=== PATIENT | male | born 1945 | race Caucasian/White ===

== ENCOUNTER → 2018-07-07 | Outpatient (CLI) | payer MEDICARE ==
[~2018-07-07] MED LIST: APIX5TAB PO; ASCO10004 PO; DIAZ5TAB PO; DIGO125T PO; FINA1TAB16 PO; HYDR25TA6 PO; HYDR2TAB40 PO; INUL1TAB PO; KETO10TA PO; LISI-170 PO; METF500T17 PO; METO-93 PO; MULT-326 PO; OXYB5TAB7 PO; OXYC-307 PO; PANT40TA5 PO; PROM25TA10 PO; SIMV20TA3 PO; TAMS-11 PO; UBID100C41 PO
[2018-07-07 14:34] LABS: ALANINE AMINOTRANSFERASE 16 U/L (12-78); ALBUMIN 3.9 g/dL (3.4-5.0); ANION GAP 6 mmol/L (5-15); CALCIUM 8.6 mg/dL (8.5-10.1); CHLORIDE 103 mmol/L (98-107); CREATININE 1.05 mg/dL (0.7-1.3)
[2018-07-07 14:37] LABS: ALKALINE PHOSPHATASE 42 U/L (45-117); BILIRUBIN,TOTAL 0.7 mg/dL (0.2-1.0); TOTAL PROTEIN 7.4 g/dL (6.4-8.2)
[2018-07-07 14:40] LABS: MICROSCOPIC AUTO
== END | disposition home or self-care (01) ==
LOC: STAR 13:15
PROVIDERS: ATTEND Urology
DX: Z01.818 Encounter for other preprocedural examination (principal); N20.0 Calculus of kidney
CPT/HCPCS: 36415; 80053; 81001; 87086; 93005

== ENCOUNTER 2018-07-16 13:48 | Day surgery (SDC) | payer MEDICARE ==
[~2018-07-16] VITALS: Ht 177.8 cm; Wt 71.8 kg
[~2018-07-16 13:48] MED LIST changes: +ONDANSETRON 2MG/ML, 2ML ONE; +PROPOFOL 10 MG/ML, 20ML ONE; +SUCCINYLCHOLINE 20 MG/ML, 10ML ONE
[2018-07-16] MEDS ORDERED: LACTATED RINGERS 1,000 ML IV SCH (14:30)
[2018-07-16] MEDS ORDERED: ACETAMINOPHEN 500 MG TABLET PO STA (15:14)
[2018-07-16] MEDS ORDERED: SCOPOLAMINE PATCH, 1.5MG PATCH.TD72 TD STA (15:14)
[2018-07-16] MEDS ORDERED: MIDAZOLAM 1 MG/ML, 2ML ONE (15:15)
[2018-07-16] MEDS ORDERED: FENTANYL PF 250 MCG/5ML ONE (15:16)
[2018-07-16] MEDS ORDERED: SCOPOLAMINE PATCH, 1.5MG PATCH.TD72 TD ONE ×2 (15:16→16:00)
[2018-07-16] MEDS ORDERED: ACETAMINOPHEN 500 MG TABLET ONE (15:16)
[2018-07-16] MEDS ORDERED: ROCURONIUM 10MG/ML,5ML ONE (15:17)
[2018-07-16] MEDS ORDERED: DEXAMETHASONE 4 MG/ML, 5ML ONE (15:20)
[2018-07-16] MEDS ORDERED: ACETAMINOPHEN 500 MG TABLET PO ONE (16:00)
[2018-07-16] MEDS ORDERED: MEPERIDINE/PF 25MG/0.5ML IVPush PRN (17:30)
[2018-07-16] MEDS ORDERED: ALBUTEROL SULFATE 2.5 MG/3 ML NPPB PRN (17:30)
[2018-07-16] MEDS ORDERED: hydrALAzine 20 MG/ML, 1ML IV PRN (17:30)
[2018-07-16] MEDS ORDERED: ONDANSETRON ODT 8 MG PO PRN (17:30)
[2018-07-16] MEDS ORDERED: FENTANYL PF 100 MCG/2ML IV PRN (17:30)
[2018-07-16] MEDS ORDERED: MORPHINE SULFATE 4 MG/ML, 1ML IVPush PRN (17:30)
[2018-07-16] MEDS ORDERED: LABETALOL 5MG/ML, 20ML IV PRN (17:30)
[2018-07-16] MEDS ORDERED: DIAZEPAM 5 MG/ML, 2ML IVPush PRN (17:30)
[2018-07-16] MEDS ORDERED: ONDANSETRON 2MG/ML, 2ML IV PRN ×2 (17:30)
[2018-07-16] MEDS ORDERED: PROMETHAZINE 12.5 MG SUPP PR PRN (17:30)
[2018-07-16] MEDS ORDERED: EPHEDRINE 50 MG/ML, 1ML IVPush PRN (17:30)
[2018-07-16] MEDS ORDERED: MIDAZOLAM 1 MG/ML, 2ML IV PRN (17:30)
[2018-07-16] MEDS ORDERED: PROMETHAZINE 25 MG/ML, 1ML IV PRN (17:30)
[2018-07-16] MEDS ORDERED: OXYcodone 5 MG/5 ML ORAL.SOL UDC PO PRN (17:30)
[2018-07-16] MEDS ORDERED: HYDROmorphone 2 MG/ML, 1ML IVPush PRN (17:30)
[2018-07-16] MEDS ORDERED: HYDROcodone/APAP 5/325 TABLET PO PRN (17:30)
[2018-07-16] MEDS ORDERED: HALOPERIDOL 5 MG/ML IV PRN (17:30)
[2018-07-16] MEDS ORDERED: PROMETHAZINE 25 MG/ML, 1ML ONE (17:45)
== END 2018-07-16 20:41 | disposition home or self-care (01) ==
LOC: OR 13:48 → 4NOR 18:29 → OR 20:41
PROVIDERS: ATTEND Urology
DX: N20.0 Calculus of kidney (principal); E11.9 Type 2 diabetes mellitus without complications; I10 Essential (primary) hypertension; F41.9 Anxiety disorder, unspecified; Z88.8 Allergy status to other drugs, medicaments and biological substances; Z79.84 Long term (current) use of oral hypoglycemic drugs
CPT/HCPCS: 50590; 82962; J0330; J1100; J2250; J2405; J2550; J2704; J3010; J7120; G0378

== ENCOUNTER → 2020-07-07 | Outpatient (CLI) | payer MEDICARE ==
[~2020-07-07] MED LIST changes: +ASCO100018 PO; -ASCO10004 PO; +ATOR20TA37 PO; +CLOT15CR26 TP; -DIGO125T PO; +DIGO125T85 PO; +ECON15CR3 TP; +MULT-124 PO; +NYST15PO9 TP; -ONDANSETRON 2MG/ML, 2ML ONE; +OXYB5TAB10 PO; -OXYB5TAB7 PO; -OXYC-307 PO; +OXYC-380 PO; -PANT40TA5 PO; +PANT40TA6 PO; -PROPOFOL 10 MG/ML, 20ML ONE; +RABE20TA29 PO; +RIVA20TA PO; +SIMV20TA19 PO; -SIMV20TA3 PO; -SUCCINYLCHOLINE 20 MG/ML, 10ML ONE
[2020-07-07 13:31] LABS: MICROSCOPIC AUTO
[2020-07-07 13:34] LABS: CHLORIDE 101 mmol/L (98-107)
[2020-07-07 13:41] LABS: ANION GAP 6 mmol/L (5-15); CALCIUM 9.1 mg/dL (8.5-10.1)
[2020-07-07 13:46] LABS: ALANINE AMINOTRANSFERASE 19 U/L (12-78); ALBUMIN 4.1 g/dL (3.4-5.0); CREATININE 1.05 mg/dL (0.7-1.3)
[2020-07-07 13:48] LABS: ALKALINE PHOSPHATASE 54 U/L (45-117); BILIRUBIN,TOTAL 0.9 mg/dL (0.2-1.0); TOTAL PROTEIN 7.6 g/dL (6.4-8.2)
== END | disposition home or self-care (01) ==
LOC: STAR 12:09
PROVIDERS: ATTEND Urology
DX: Z01.812 Encounter for preprocedural laboratory examination (principal); Z20.822 Contact with and (suspected) exposure to COVID-19; I25.9 Chronic ischemic heart disease, unspecified; N20.0 Calculus of kidney
CPT/HCPCS: 36415; 80053; 81001; 87086; 93005; U0003

== ENCOUNTER 2020-07-13 07:09 | Day surgery (SDC) | payer MEDICARE ==
[2020-07-07 13:02] VITALS: BP 138/75
[~2020-07-13] VITALS: Ht 177.8 cm; Wt 71.2 kg
[2020-07-13] MEDS ORDERED: CHLORHEXIDINE 15 ML UDC MM ONE (07:30)
[2020-07-13] MEDS ORDERED: LACTATED RINGERS 1,000 ML IV SCH (07:30)
[2020-07-13 07:39] VITALS: BP 138/75
[2020-07-13] MEDS ORDERED: FENTANYL PF 100 MCG/2ML ONE ×2 (07:56→10:56)
[2020-07-13] MEDS ORDERED: MIDAZOLAM 1 MG/ML, 2ML ONE (07:56)
[2020-07-13] MEDS ORDERED: KETOROLAC 30 MG/1 ML IV PRN (08:30)
[2020-07-13] MEDS ORDERED: ONDANSETRON 2MG/ML, 2ML IVPush PRN (08:30)
[2020-07-13] MEDS ORDERED: ACETAMINOPHEN 325 MG TABLET PO PRN (08:30)
[2020-07-13] MEDS ORDERED: HYDROmorphone 1 MG/ML, 1ML INJ IVPush PRN (08:30)
[2020-07-13] MEDS ORDERED: LABETALOL 5MG/ML, 20ML IV PRN (08:30)
[2020-07-13] MEDS ORDERED: OXYcodone 5 MG/5 ML ORAL.SOL UDC PO PRN (08:30)
[2020-07-13] MEDS ORDERED: hydrALAzine 20 MG/ML, 1ML IV PRN (08:30)
[2020-07-13] MEDS ORDERED: CEFAZOLIN 1,000 MG ONE (09:20)
[2020-07-13] MEDS ORDERED: PROPOFOL 10 MG/ML, 20ML ONE (09:52)
[2020-07-13] MEDS ORDERED: ONDANSETRON 2MG/ML, 2ML ONE (09:52)
[2020-07-13] MEDS ORDERED: KETOROLAC 30 MG/1 ML ONE (10:56)
[2020-07-13] MEDS ORDERED: ONDANSETRON 2MG/ML, 2ML IV PRN (11:00)
[2020-07-13] MEDS ORDERED: HYDROcodone/APAP 5/325 TABLET PO PRN (11:00)
[2020-07-13] MEDS: FENTANYL PF 100 MCG/2ML IV PRN ×2 (11:03→11:10)
[2020-07-13] MEDS ORDERED: HYDROcodone/APAP 7.5-325MG/15ML UDC ONE (11:07)
[2020-07-13] MEDS ORDERED: HYDROcodone/APAP 7.5-325MG/15ML UDC PO PRN (11:30)
== END 2020-07-13 16:15 | disposition home or self-care (01) ==
LOC: OUT 07:09
PROVIDERS: ATTEND Urology
DX: N20.0 Calculus of kidney (principal); I10 Essential (primary) hypertension; I25.10 Atherosclerotic heart disease of native coronary artery without angina pectoris; I48.91 Unspecified atrial fibrillation; E11.9 Type 2 diabetes mellitus without complications; Z79.899 Other long term (current) drug therapy; Z87.442 Personal history of urinary calculi; Z88.8 Allergy status to other drugs, medicaments and biological substances
CPT/HCPCS: 50590; 82962; J0690; J1885; J2250; J2405; J2704; J3010; J7120